=== PATIENT | male | born 1985 | race Two or more races ===

== ENCOUNTER 2018-09-09 00:06 | Emergency (ER) | payer SELFPAY ==
[~2018-09-09] VITALS: Ht 182.9 cm; Wt 100.2 kg
[2018-09-09] MEDS ORDERED: HYDR-971 PO (01:08)
[2018-09-09] MEDS ORDERED: KETOROLAC 30 MG/ML VIAL. IM ONE (01:15)
[2018-09-09] MEDS ORDERED: KETOROLAC 60 MG/2 ML INJ. IM ONE (01:15)
[2018-09-09 01:30] VITALS: BP 118/68
--- NOTE | 2018-09-09 03:38 | PHYS DOC ---
Past Medical History Past Medical History: No Pertinent History Past Surgical History: No Surgical History Alcohol Use: None Drug Use: None Adult General Chief Complaint Chief Complaint: LOWER BACK PAIN OR INJURY HPI HPI Patient is a 33 year old male who presents with low back pain. He bent over in the shower he felt a sudden pull in his lower back no actual injury he did not fall down. The pain is nonradiating it's sharp worse with movement he cannot lean forward mid low back no bowel or bladder incontinence no numbness no tingling no shooting pain into the legs just hurts when he tries to twist or bend over. No previous history of this no medical problems at all no IV drug use no fever Review of Systems Review of Systems Constitutional: Denies fever or chills [] Musculoskeletal: Integument: Denies rash or skin lesions [] Neurologic: Denies headache, Endocrine: Denies polyuria or polydipsia [] All other systems were reviewed and found to be within normal limits, except as documented in this note. Current Medications Current Medications Current Medications Medications (Trade) Dose Ordered Sig/Deanna Start Time Stop Time Status Last Admin Dose Admin Ketorolac Tromethamine (Toradol 30mg Vial) 30 mg 1X ONCE 09/09/18 01:15 09/09/18 01:16 DC 09/09/18 01:23 30 MG Ketorolac Tromethamine (Toradol Im) 30 mg 1X ONCE 09/09/18 01:15 09/09/18 01:15 DC Lorazepam (Ativan) 2 mg 1X ONCE 09/09/18 01:15 09/09/18 01:16 DC 09/09/18 01:22 2 MG Allergies Allergies Allergies Coded Allergies Type Severity Reaction Last Updated Verified No Known Drug Allergies 03/27/16 No Physical Exam Physical Exam Constitutional: Well developed, well nourished, no acute distress, non-toxic appearance. [] HENT: Normocephalic, atraumatic, bilateral external ears normal, oropharynx moist, no oral exudates, nose normal. [] Eyes: PERRLA, EOMI, conjunctiva normal, no discharge. [] Neck: Normal range of motion, no tenderness, supple, no stridor. [] Pulmonary: Normal respiratory effort no increased work of breathing no obvious chest wall trauma Abdomen: Bowel sounds normal, soft, no tenderness, no masses, no pulsatile masses. [] Skin: Warm, dry, no erythema, no rash. [] Back: There is mid spine tenderness L2-L3 and also paraspinous on the right Extremities: No tenderness, no cyanosis, no clubbing, ROM intact, no edema. [] Neurologic: Alert and oriented X 3, normal motor function, normal sensory function, no focal deficits noted. [] Psychologic: Affect normal, judgement normal, mood normal. [] Current Patient Data Vital Signs Vital Signs Date Time Temp Pulse Resp B/P (MAP) Pulse Ox O2 Delivery O2 Flow Rate FiO2 09/09/18 01:30 98.2 70 16 118/68 (85) 98 Room Air 98.2 EKG EKG [] Radiology/Procedures Radiology/Procedures [] Course & Med Decision Making Course & Med Decision Making Pertinent Labs and Imaging studies reviewed. (See chart for details) []Low back pain vitals are reassuring no red flags I suspect muscle spasm and/ or herniated disc no signs of cauda equina. Patient was treated symptomatically and was given a short course of Purlear for the next couple of days and he was counseled with the nursing staff who speaks fluent [place] about risk and benefits of this medication including short-term use not to drive or operate heavy machinery etc. etc. Return impressions were advised that he voiced understanding of instructions Wally Disclaimer Wally Disclaimer This electronic medical record was generated, in whole or in part, using a voice recognition dictation system. Departure Departure Impression: Primary Impression: Back pain Disposition: HOME, SELF-CARE Condition: STABLE Patient Instructions: Back Pain, Adult, [id number] Scripts Hydrocodone/Apap 5-325 (NORCO 5-325 TABLET) 1 Each Tablet 1-2 EACH PO PRN Q6HRS PRN for PAIN, #15 as needed for pain Prov: CEDRIC GARZA MD 09/09/18 CEDRIC GARZA MD Sep 09, 2018 03:38
== END 2018-09-09 01:30 | disposition home or self-care (01) ==
LOC: ER 00:06
DX: M54.5 Low back pain (principal)
CPT/HCPCS: 96372; 99284; J1885; J2060